=== PATIENT | female | born 1975 | race Caucasian/White ===

== ENCOUNTER 2018-11-19 23:44 | Emergency (ER) | payer OTHER, MEDICAID ==
[~2018-11-19] VITALS: Ht 154.9 cm; Wt 77.6 kg
[~2018-11-19 23:44] MED LIST: ASCO-339 GT; BACL10TA GT; DULR10 RC; HYDR-1189 GT; LEVE500T9 GT; METH10TA4 GT; MOM GT; MULT-1117 GT; OMEP20CA10 GT; SENN-153 GT; TYLL650 GT; UTI STAT GT
--- NOTE | 2018-11-19 23:47 | NUR ---
Patient to ER bed 8 to gown for evaluation. Side rails up. Report given to Brody FAULKNER.
[2018-11-19 23:48] VITALS: BP_SYST 114
--- NOTE | 2018-11-19 23:48 | NUR ---
ER at bedside examining patient.
--- NOTE | 2018-11-20 00:05 | NUR ---
Pt BIBA to ED C/O g-tube malfunction tonight. Per staff, while a MACHINE I TRIMMER was changing the patient she noticed that the patient's g-tube fell out but the balloon is still intact. No other complaints and or injuries noted. VSS no s/s of acute distress. Resting on gurney rails up
[2018-11-20] MEDS ORDERED: DIATR MEGLU/DIATRIZ SOD 30 ML SOLUTION PO ONE (00:30)
--- NOTE | 2018-11-20 01:02 | NUR ---
VSS no s/s of acute distress. Resting on gurney with rails up
--- NOTE | 2018-11-20 02:07 | NUR ---
Spoke with Ulysses, from [facility], in regards to transferring patient back to SNF.
--- NOTE | 2018-11-20 02:30 | NUR ---
Patient given written and verbal discharge instructions and verbalizes understanding. ER MD discussed with patient the results and treatment provided. Patient in stable condition. ID arm band removed. Patient educated on pain management and to follow up with PMD. Pain Scale 0/10 Opportunity for questions provided and answered.
[2018-11-20 02:31] VITALS: BP_SYST 114
== END 2018-11-20 02:31 ==
LOC: SED 23:44
DX: K94.23 Gastrostomy malfunction (principal); I10 Essential (primary) hypertension; Z86.73 Personal history of transient ischemic attack (TIA), and cerebral infarction without residual deficits; Z79.899 Other long term (current) drug therapy
CPT/HCPCS: 43762; 74240; 99284; Q9964

== ENCOUNTER 2020-12-28 10:39 | Emergency (ER) | payer OTHER, MEDICAID ==
[~2020-12-28] VITALS: Ht 165.1 cm; Wt 108.9 kg
[~2020-12-28 10:39] MED LIST changes: -HYDR-1189 GT; +HYDR-3919 GT; -OMEP20CA10 GT; +OMEP20CA15 GT
[2020-12-28 10:40] VITALS: BP_SYST 131
[2020-12-28] MEDS ORDERED: GASTROGRAFIN 120 ML ONE (10:56)
[2020-12-28 11:17] VITALS: BP_SYST 131
== END 2020-12-28 11:18 ==
LOC: SED 10:39
DX: K94.23 Gastrostomy malfunction (principal); I10 Essential (primary) hypertension; Z79.899 Other long term (current) drug therapy
CPT/HCPCS: 43762; 74240; 99284; Q9963